=== PATIENT | female | born 1970 | race African-American/Black ===

== ENCOUNTER 2020-09-12 10:11 | Inpatient (IN) ==
[~2020-09-12 10:11] MED LIST: *HR* HYDROmorphone 2 MG TABLET PO PRN; *HR* Labetalol 20 MG/4 ML SYRINGE IVP PRN; *HR* OxyCODONE Immed Rel 5 MG TABLET PO PRN; Acetaminophen IV 1,000 MG/100 ML BAG IVPB ONE; Famotidine 20 MG/2 ML VIAL IVP ONE; Pregabalin 75 MG CAPSULE PO ONE; Scopolamine Patch 1.5 MG PATCH.TD72 TD ONE
[2020-09-12] MEDS ORDERED: *HR* FentaNYL (PF) 100 MCG/2 ML VIAL ONE ×2 (10:23→15:35)
[2020-09-12] MEDS ORDERED: *HR* Propofol 200 MG/20 ML VIAL IVP ONE (10:23)
[2020-09-12] MEDS ORDERED: Dexamethasone 4 MG/ML VIAL ONE (10:24)
[2020-09-12] MEDS ORDERED: Ondansetron 4 MG/2 ML VIAL ONE (10:24)
[2020-09-12] MEDS ORDERED: Lidocaine -MPF 2% 2 ML VIAL ONE (10:24)
[2020-09-12] MEDS ORDERED: *HR* Heparin 5,000 UNIT/ML VIAL ONE (10:26)
[2020-09-12] MEDS ORDERED: CeFAZolin Syr 2,000MG/20 ML 2,000 MG/20 ML SYRINGE IVPB ONE (10:43)
[2020-09-12] MEDS ORDERED: Vancomycin 500 MG in 0.9 % Sodium Chloride Mini Bag 100 ML IVPB ONE (10:43)
[2020-09-12] MEDS ORDERED: Ringers Solution, Lactated 1,000 ML IVC SCH (10:45)
[2020-09-12] MEDS ORDERED: Heparin 1,000 UNITS/500 mL 0 ML ONE ×2 (11:08→11:09)
[2020-09-12] MEDS ORDERED: *HR* Remifentanil 2 MG VIAL IVP ONE (11:26)
[2020-09-12] MEDS ORDERED: *HR* LORazepam 1 MG TABLET PO PRN (11:29)
[2020-09-12] MEDS ORDERED: Vancomycin 1,000 MG, Sodium Chloride IRRigation 1,000 ML IR ONE (11:40)
[2020-09-12] MEDS ORDERED: *HR* Rocuronium Bromide 50 MG/5 ML VIAL ONE (11:44)
[2020-09-12] MEDS ORDERED: Lidocaine 1% 20 ML MDV ONE (12:14)
[2020-09-12] MEDS ORDERED: *HR* Phenylephrine 10 MG/ML VIAL ONE (13:22)
[2020-09-12] MEDS ORDERED: EPHEDrine 50 MG/ML VIAL ONE (13:33)
[2020-09-12] MEDS: *HR* HYDROmorphone PF 0.5 MG/0.5 ML SYRINGE IVP PRN ×2 (16:33→16:43)
[2020-09-12] MEDS ORDERED: Acetaminophen 325 MG TABLET PO PRN (17:42)
[2020-09-12] MEDS ORDERED: Ondansetron 4 MG/2 ML VIAL IVP PRN (17:42)
[2020-09-12] MEDS ORDERED: 0.9 % Sodium Chloride 1,000 ML IVC SCH (17:42)
[2020-09-12] MEDS ORDERED: *HR* Labetalol 20 MG/4 ML SYRINGE IVP PRN (17:42)
[2020-09-12] MEDS ORDERED: Naloxone 0.4 MG/ML INJ IVP PRN (17:42)
[2020-09-12] MEDS ORDERED: *HR* HYDROcodone/Acet 5/325 mg TABLET PO PRN (17:42)
[2020-09-12] MEDS: *HR* Metoprolol 5 MG/5 ML VIAL IVP SCH (18:16)
[2020-09-12] MEDS: CeFAZolin 2 GM/120 ML BAG IVPB SCH (20:57)
[2020-09-12] MEDS: *HR* OxyCODONE Immed Rel 5 MG TABLET PO PRN (22:38)
[2020-09-13] MEDS: *HR* Metoprolol 5 MG/5 ML VIAL IVP SCH ×2 (00:48→06:14)
[2020-09-13 01:40] LABS: Basophils % 0.2 %; Hematocrit 33.3 % (35.3-44.9); Hemoglobin 10.9 g/dL (11.5-15.4); Immature Granulocytes % 0.4 % (0-4); Lymphocytes # 1.1 K/mcL (0.6-4.6); Lymphocytes % 10.7 %; Mean Corpuscular HGB Conc 32.7 g/dL (31.6-35.5); Mean Corpuscular Hemoglobin 31.7 pg (28.0-33.3); Mean Corpuscular Volume 96.8 fL (83.0-100.0); Mean Platelet Volume 9.6 fL (9.4-12.4); Monocytes # 0.8 K/mcL (0.0-1.3); Monocytes % 7.8 %; Neutrophils # 8.6 K/mcL (1.6-8.9); Platelet Count 351 K/mcL (140-400); Red Blood Count 3.44 M/mcL (3.82-4.97); Red Cell Distribution Width 14.6 % (11.5-14.5); Segmented Neutrophils % 80.9 %; White Blood Count 10.7 K/mcL (4.3-11.1)
[2020-09-13 01:58] LABS: BUN/Creatinine Ratio 10 (6-26); Blood Urea Nitrogen 9 mg/dL (6-20); Calcium 8.7 mg/dL (8.6-10.3); Carbon Dioxide 23 mEq/L (23-29); Chloride 106 mEq/L (98-107); Glucose 117 mg/dL (70-105); Osmolality,Calculated 286 (280-300); Potassium 4.6 mEq/L (3.5-5.1); Sodium 138 mEq/L (136-145); eGFR For African Americans > 60 (> 60); eGFR For Non-African Americans > 60 (> 60)
[2020-09-13] MEDS: CeFAZolin 2 GM/120 ML BAG IVPB SCH (05:00)
[2020-09-13] MEDS ORDERED: *HR* Heparin 5,000 UNIT/ML VIAL SQ SCH ×2 (06:00)
[2020-09-13 07:09] VITALS: BP 110/80
[2020-09-13] MEDS: *HR* OxyCODONE Immed Rel 5 MG TABLET PO PRN (11:21)
== END 2020-09-13 10:39 | disposition home or self-care (01) | DRG 254 ==
LOC: SAMDAY 10:11 → 2NNU 11:11
PROVIDERS: ADMIT Surgery; ATTEND Surgery